=== PATIENT | male | born 1980 | race Caucasian/White ===

== ENCOUNTER 2020-06-19 10:02 | Emergency (ER) | payer MEDICARE, OTHER ==
[~2020-06-19 10:02] MED LIST: CHILDREN'S5 MG/5 M1 PO; CLONAZEPAM1 M1 SL; COLACE 100MG C100 MG PO; DILANTIN100 MG PO; IBUPROFEN600 MG PO; KEPPRA1000 MG PO; MIDAZOLAM; MIRALAX17 GM PO; NORCO 5-325 TA1 EACH PO; ONFI10 MG PO; SILACE50 MG/5 ML PO; VIMPAT PO
[2020-06-19 12:15] LABS: RED BLOOD COUNT 5.46 M/UL (4.20-5.50); WHITE BLOOD COUNT 6.3 K/UL (4.5-11.0)
[2020-06-19 12:45] LABS: BUN/CREATININE RATIO 13 (0-10)
[2020-06-19] MEDS ORDERED: ZOFRAN 4 MG4 MG/5 ML GT (15:15)
== END 2020-06-19 16:11 | disposition home or self-care (01) ==
LOC: ER1 10:02
PROVIDERS: Physician Assistant Medical
DX: G40.909 Epilepsy, unspecified, not intractable, without status epilepticus (principal)
CPT/HCPCS: 51702; 70450; 74018; 80053; 80185; 81001; 83690; 85025; 99284

== ENCOUNTER 2020-06-23 09:18 | Inpatient (IN) | payer MEDICARE, OTHER ==
[~2020-06-23] VITALS: Ht 177.8 cm; Wt 88.6 kg
[~2020-06-23 09:18] MED LIST changes: +ZOFRAN 4 MG4 MG/5 ML GT
[2020-06-23 09:52] LABS: HEMOGLOBIN 16.8 gm/dl (14.0-17.5); RED BLOOD COUNT 5.35 M/UL (4.20-5.50); WHITE BLOOD COUNT 11.8 K/UL (4.5-11.0)
[2020-06-23 10:38] LABS: BUN/CREATININE RATIO 11 (0-10)
[2020-06-23] MEDS ORDERED: ONFI20 MG PO (12:32)
[2020-06-23] MEDS ORDERED: KEPPRA 100100 MG/1 M GT (12:34)
[2020-06-23] MEDS ORDERED: ALLERGY REL5 MG/5 ML GT (12:35)
[2020-06-23] MEDS ORDERED: VIMPAT10 MG/1 ML GT (12:43)
[2020-06-24 10:49] LABS: RED BLOOD COUNT 4.51 M/UL (4.20-5.50); WHITE BLOOD COUNT 3.4 K/UL (4.5-11.0)
[2020-06-24 11:10] LABS: BUN/CREATININE RATIO 12 (0-10)
[2020-06-24] MEDS ORDERED: PHENYTOIN SODI100 MG PO (12:20)
[2020-06-24] MEDS ORDERED: DILANTIN100 MG PO (12:40)
[2020-06-25 04:00] LABS: HEMOGLOBIN 13.1 gm/dl (14.0-17.5); RED BLOOD COUNT 4.33 M/UL (4.20-5.50)
[2020-06-25 04:03] LABS: WHITE BLOOD COUNT 2.2 K/UL (4.5-11.0)
[2020-06-25 04:41] LABS: BUN/CREATININE RATIO 13 (0-10)
[2020-06-26 09:51] LABS: HEMOGLOBIN 14.4 gm/dl (14.0-17.5); RED BLOOD COUNT 4.7 M/UL (4.20-5.50); WHITE BLOOD COUNT 2.2 K/UL (4.5-11.0)
[2020-06-26] MEDS ORDERED: VIBRAMYCIN 100100 MG GT (11:04)
[2020-06-26] MEDS ORDERED: AMOX TR-K200 MG/5 M PO (11:04)
[2020-06-26 11:33] LABS: BUN/CREATININE RATIO 8 (0-10)
[2020-06-27 06:33] LABS: HEMOGLOBIN 13.9 gm/dl (14.0-17.5); RED BLOOD COUNT 4.58 M/UL (4.20-5.50)
[2020-06-27 06:39] LABS: WHITE BLOOD COUNT 2.9 K/UL (4.5-11.0)
[2020-06-27 07:11] LABS: BUN/CREATININE RATIO 13 (0-10)
== END 2020-06-27 13:54 | disposition home or self-care (01) | DRG 871 ==
LOC: ER1 09:18 → CDU 11:50 → MED SURG 4 11:50
PROVIDERS: Emergency Medicine; Internal Medicine; Physician Assistant; Physician Assistant Medical; ADMIT Internal Medicine
DX: A41.51 Sepsis due to Escherichia coli [E. coli] (principal); G93.41 Metabolic encephalopathy; J69.0 Pneumonitis due to inhalation of food and vomit; G93.1 Anoxic brain damage, not elsewhere classified; E87.1 Hypo-osmolality and hyponatremia; D69.6 Thrombocytopenia, unspecified; Z20.822 Contact with and (suspected) exposure to COVID-19; R65.20 Severe sepsis without septic shock; E88.09 Other disorders of plasma-protein metabolism, not elsewhere classified; E86.1 Hypovolemia; N30.90 Cystitis, unspecified without hematuria; Z87.820 Personal history of traumatic brain injury; Z93.1 Gastrostomy status; Z80.49 Family history of malignant neoplasm of other genital organs; Z83.3 Family history of diabetes mellitus; Z82.49 Family history of ischemic heart disease and other diseases of the circulatory system; Z80.2 Family history of malignant neoplasm of other respiratory and intrathoracic organs
CPT/HCPCS: 36415; 51701; 71045; 76705; 80048; 80053; 80076; 80202; 81001; 83605; 83735; 84100; 84132; 85025; 85027; 86140; 87040; 87077; 87081; 87086; 87186; 96365; 96375; 99284; J0696; J2543; J3370; J7030; J7050; J7070; U0002

== ENCOUNTER 2020-07-05 09:54 | Emergency (ER) | payer MEDICARE, OTHER ==
[~2020-07-05 09:54] MED LIST changes: +ALLERGY REL5 MG/5 ML GT; +AMOX TR-K200 MG/5 M PO; +KEPPRA 100100 MG/1 M GT; +ONFI20 MG PO; +PHENYTOIN SODI100 MG PO; +VIBRAMYCIN 100100 MG GT; +VIMPAT10 MG/1 ML GT
[2020-07-05 11:51] LABS: HEMOGLOBIN 15.7 gm/dl (14.0-17.5); RED BLOOD COUNT 5.19 M/UL (4.20-5.50); WHITE BLOOD COUNT 10.1 K/UL (4.5-11.0)
[2020-07-05 12:23] LABS: BUN/CREATININE RATIO 8 (0-10)
== END 2020-07-05 15:04 | disposition home or self-care (01) ==
LOC: ER1 09:54
PROVIDERS: Emergency Medicine
DX: R11.10 Vomiting, unspecified (principal); R19.7 Diarrhea, unspecified; R31.9 Hematuria, unspecified; Z86.69 Personal history of other diseases of the nervous system and sense organs; Z87.820 Personal history of traumatic brain injury
CPT/HCPCS: 71045; 80053; 81001; 82550; 82553; 83605; 83690; 83874; 84484; 85025; 87040; 87045; 87046; 87449; 93005; 99285

== ENCOUNTER 2020-07-25 08:43 | Observation (INO) | payer MEDICARE, OTHER ==
[~2020-07-25] VITALS: Ht 177.8 cm; Wt 91.7 kg
[2020-07-25 09:34] LABS: HEMOGLOBIN 16.3 gm/dl (14.0-17.5); RED BLOOD COUNT 5.27 M/UL (4.20-5.50); WHITE BLOOD COUNT 4.9 K/UL (4.5-11.0)
[2020-07-25 10:04] LABS: BUN/CREATININE RATIO 11 (0-10)
[2020-07-26 04:37] LABS: HEMOGLOBIN 16.4 gm/dl (14.0-17.5); RED BLOOD COUNT 5.37 M/UL (4.20-5.50)
[2020-07-26 04:39] LABS: WHITE BLOOD COUNT 6.6 K/UL (4.5-11.0)
[2020-07-26 04:56] LABS: BUN/CREATININE RATIO 13 (0-10)
== END 2020-07-26 14:11 | disposition home or self-care (01) ==
LOC: ER1 08:43 → CDU 14:15 → M/S 15:07
PROVIDERS: Emergency Medicine; Physician Assistant Medical; ADMIT Internal Medicine Infectious Disease
DX: G40.909 Epilepsy, unspecified, not intractable, without status epilepticus (principal); E87.6 Hypokalemia; G93.1 Anoxic brain damage, not elsewhere classified; Z20.822 Contact with and (suspected) exposure to COVID-19; Z93.1 Gastrostomy status; R90.82 White matter disease, unspecified; G31.9 Degenerative disease of nervous system, unspecified
CPT/HCPCS: 36415; 51701; 70450; 71045; 80048; 80053; 81001; 82550; 82553; 83735; 84484; 85025; 85027; 93005; 99285; G0378; U0002

== ENCOUNTER 2021-05-15 08:26 | Emergency (ER) | payer MEDICARE, OTHER ==
[2021-05-15 09:33] LABS: HEMOGLOBIN 16.9 gm/dl (14.0-17.5); RED BLOOD COUNT 5.31 M/UL (4.20-5.50); WHITE BLOOD COUNT 6.6 K/UL (4.5-11.0)
[2021-05-15 09:51] LABS: BUN/CREATININE RATIO 18 (0-10)
== END 2021-05-15 11:51 | disposition home or self-care (01) ==
LOC: ER1 08:26
PROVIDERS: Physician Assistant
DX: K62.5 Hemorrhage of anus and rectum (principal); R19.5 Other fecal abnormalities
CPT/HCPCS: 80053; 82272; 85025; 99285; Q9967

== ENCOUNTER 2021-08-03 11:50 | Emergency (ER) | payer MEDICARE, OTHER ==
[2021-08-03 13:56] LABS: HEMOGLOBIN 15.6 gm/dl (14.0-17.5); RED BLOOD COUNT 4.86 M/UL (4.20-5.50); WHITE BLOOD COUNT 5.9 K/UL (4.5-11.0)
[2021-08-03 14:22] LABS: BUN/CREATININE RATIO 13 (0-10)
== END 2021-08-03 18:00 | disposition home or self-care (01) ==
LOC: ER1 11:50
PROVIDERS: Physician Assistant
DX: G40.909 Epilepsy, unspecified, not intractable, without status epilepticus (principal); Z79.899 Other long term (current) drug therapy
CPT/HCPCS: 80053; 80185; 85025; 96374; 99284; G0480